=== PATIENT | female | born 1940 | race Caucasian/White ===

== ENCOUNTER 2017-06-24 18:28 | Emergency (ER) | payer MEDICARE ==
[~2017-06-24] VITALS: Ht 165.1 cm; Wt 77.0 kg
[~2017-06-24 18:28] MED LIST: AMLODIPINE2.5 MG PO; AMLODIPINE5 MG PO; CHOLESTERO4 PO; HYZAAR1 TA2 PO; IBUPROFEN600 MG PO; LECITHIN1 TAB OR; LEVOTHYROXIN75 MC1 PO; LOSARTAN POT100 MG PO; LOVASTATIN20 M1 PO; LOVASTATIN20 MG PO; MULTIVITAM10 OR; NABUMETONE750 MG PO; [UNRECOGNIZED DRUG - OTHER] OR
[2017-06-24] MEDS ORDERED: BACTRIM DS1 TAB PO (19:16)
[2017-06-24] MEDS ORDERED: CEPHALEXIN500 MG PO (19:16)
[2017-06-24 19:28] VITALS: BP 133/68
== END 2017-06-24 19:28 | disposition home or self-care (01) ==
LOC: ED 18:28
DX: S91.332A Puncture wound without foreign body, left foot, initial encounter (principal); I10 Essential (primary) hypertension; E78.00 Pure hypercholesterolemia, unspecified; E07.9 Disorder of thyroid, unspecified; W22.8XXA Striking against or struck by other objects, initial encounter; Y93.H9 Activity, other involving exterior property and land maintenance, building and construction; Y92.007 Garden or yard of unspecified non-institutional (private) residence as the place of occurrence of the external cause

== ENCOUNTER → 2018-07-24 | Day surgery (SDC) | payer MEDICARE ==
[~2018-07-24] MED LIST changes: +ASPIRIN LOW DOS81 M1 PO; +ASPIRIN81 MG PO; +BACTRIM DS1 TAB PO; +CEPHALEXIN500 MG PO; +COQ1030 MG PO; +LECITHIN; +LEVOTHYROXIN75 MCG PO; +MULTI VIT PO; +PRAVASTATIN20 MG PO
[2018-07-24 12:04] VITALS: BP 138/84
== END | disposition home or self-care (01) ==
LOC: ENDO 08:24 → ORM 11:00
PROVIDERS: ATTEND Surgery
PROC: 0DBN8ZX Excision of Sigmoid Colon, Via Natural or Artificial Opening Endoscopic, Diagnostic (ICD-10-PCS; principal; 2018-07-24)
DX: K57.31 Diverticulosis of large intestine without perforation or abscess with bleeding (principal); D12.5 Benign neoplasm of sigmoid colon; Q43.8 Other specified congenital malformations of intestine; I10 Essential (primary) hypertension